=== PATIENT | female | born 1940 | race Caucasian/White ===

== ENCOUNTER 2023-02-22 12:07 | Emergency (ER) | payer MEDICARE, OTHER ==
[~2023-02-22] VITALS: Ht 167.6 cm; Wt 90.9 kg
[~2023-02-22 12:07] MED LIST: DIPH-423 PO; EPIN0.3P17 IM; PRED-352 PO
[2023-02-22 12:19] VITALS: BP 152/74
== END 2023-02-22 14:33 | disposition home or self-care (01) ==
LOC: ER 12:07
DX: S00.83XA Contusion of other part of head, initial encounter (principal); S09.90XA Unspecified injury of head, initial encounter; W19.XXXA Unspecified fall, initial encounter; Y93.89 Activity, other specified; Y92.89 Other specified places as the place of occurrence of the external cause; Y99.8 Other external cause status
CPT/HCPCS: 70450; 70486; 72125; 99284